=== PATIENT | male | born 1975 | race Caucasian/White ===

== ENCOUNTER → 2017-03-10 | Outpatient (CLI) | payer BC ==
--- NOTE | 2017-03-10 10:10 | MR ---
EXAMINATION TYPE: MR shoulder LT wo con DATE OF EXAM: 03/10/2017 9:53 AM COMPARISON: NONE HISTORY: Left shoulder pain TECHNIQUE: Multiplanar, multisequence imaging of the left shoulder is performed without contrast. FINDINGS: Rotator Cuff: There is intrasubstance signal within the distal margin the subscapularis tendon compat ible with tendinosis and intrasubstance tear. No through thickness tear or retraction. Within the rotator interval there is intermediate signal which can be associated with capsulitis. Acromioclavicular Joint: AC joint is maintained. No evidence of impingement. Type II acromion. Glenohumeral Joint: Joint spaces preserved with no sizable joint effusion however there is edema annmarie g the glenoid insertion of the inferior glenohumeral ligament which appears to be thickened suggestiv e of sprain. No through thickness tear. This can be associated with capsulitis. Labrum: The labrum appears grossly intact given limitation of non-arthrogram study. Biceps Tendon: The long head of biceps is in normal location within bicipital groove. Bone marrow signal: No focal abnormal marrow signal is appreciated. IMPRESSION: 1. Findings are suggestive of capsulitis, including adhesive capsulitis. Edema around the inferior gl enohumeral ligament suggestive of sprain with no through thickness tear. 2. Very mild supraspinatus tendinosis with suspected partial intrasubstance tear but no through thick ness tear or retraction.
== END | disposition home or self-care (01) ==
LOC: RADMRIMAIN 09:17
PROVIDERS: ATTEND Family Medicine
DX: M67.814 Other specified disorders of tendon, left shoulder (principal)

== ENCOUNTER 2017-05-29 08:18 | Observation (INO) | payer BC ==
[2017-05-29] MEDS ORDERED: SODIUM CHLORIDE 0.9% 1,000 ML IV STA ×2 (08:35→11:32)
[2017-05-29] MEDS ORDERED: HYDROmorphone 1 MG/ML 1 ML SYRINGE IVP STA ×2 (08:35→11:24)
--- NOTE | 2017-05-29 08:49 | ED ---
General Adult HPI <Bryan Garza - Last Filed: 05/29/17 11:32> - General Source: patient, RN notes reviewed Mode of arrival: ambulatory Limitations: no limitations <Clair Vivar - Last Filed: 05/29/17 11:47> - General Chief complaint: Skin/Abscess/Foreign Body Stated complaint: MALE - ABSCESS Time Seen by Provider: 05/29/17 08:31 - History of Present Illness Initial comments: 41-year-old male presents to the emergency department with a chief complaint of wound to the right side of the testicles. Patient states he's had this for about 5 days. Patient states it started as just like an ingrown hair and has gotten worse. Patient states he has had drainage and discharge from the area. Patient denies any fever or chills with this. Patient denies any cough cold runny nose. Patient denies any history of MRSA or anything like this in the past. Patient states he was concerned due to the redness swelling and pain of the area so he thought that he should be evaluated.Patient denies any recent fever, chills, shortness of breath, chest pain, back pain, abdominal pain, nausea vomiting, numbness or tingling, dysuria or hematuria, constipation or diarrhea, headaches or visual changes, or any other current symptoms. (Clair Vivar) - Related Data Home Medications Medication Instructions Recorded Confirmed ALPRAZolam [Xanax] 0.25 mg PO BID PRN 06/26/15 05/29/17 Citalopram Hydrobromide [CeleXA] 30 mg PO DAILY 06/26/15 05/29/17 Hydrocodone/Acetaminophen [Lortab 1 tab PO Q4HR PRN 06/26/15 05/29/17 5-325 mg Tablet] Acetaminophen Tab [Tylenol Tab] 650 mg PO Q4H PRN 05/29/17 05/29/17 Allergies Allergy/AdvReac Type Severity Reaction Status Date / Time Sulfa (Sulfonamide Allergy Rash/Hives Verified 05/29/17 08:59 Antibiotics) Review of Systems ROS Other: All systems not noted in ROS Statement are negative. <Bryan Garza - Last Filed: 05/29/17 11:32> ROS Other: All systems not noted in ROS Statement are negative. <Clair Vivar - Last Filed: 05/29/17 11:47> ROS Statement: Those systems with pertinent positive or pertinent negative responses have been documented in the HPI. Past Medical History Past Medical History: No Reported History Additional Past Medical History / Comment(s): 06/26/15 Pt presented to [facility] ER with L hand infected x 2 days. He states he was cutting wood and reached down to pick out hand his axe and accidentally cut between 2nd and 3rd fingers of L hand with axe blade. He is admitted with cellulitis L hand and associated with streaking and fever. Other HX: L knee pain which pt thinks is due to tendonitis. History of Any Multi-Drug Resistant Organisms: None Reported Past Surgical History: Appendectomy Past Anesthesia/Blood Transfusion Reactions: No Reported Reaction Past Psychological History: Anxiety, Depression Smoking Status: Current every day smoker Past Alcohol Use History: None Reported Past Drug Use History: None Reported - Past Family History Father Family Medical History: Hypertension, Myocardial Infarction ([place]) Mother Family Medical History: Hypertension <Clair Vivar - Last Filed: 05/29/17 11:47> General Exam Limitations: no limitations General appearance: alert, in no apparent distress ENT exam: Present: normal exam, mucous membranes moist Respiratory exam: Present: normal lung sounds bilaterally. Absent: respiratory distress, wheezes, rales, rhonchi, stridor Cardiovascular Exam: Present: regular rate, normal rhythm, normal heart sounds. Absent: systolic murmur, diastolic murmur, rubs, gallop, clicks GI/Abdominal exam: Present: soft, normal bowel sounds. Absent: distended, tenderness, guarding, rebound, rigid exam: Present: testicular tenderness (To the right), scrotal swelling (Right sided with induration with a open draining abscess noted). Absent: urethral discharge Neurological exam: Present: alert, oriented X3 Psychiatric exam: Present: normal affect, normal mood Skin exam: Present: warm, dry, intact, normal color. Absent: rash <Clair Vivar - Last Filed: 05/29/17 11:47> Course <Bryan Garza - Last Filed: 05/29/17 11:32> <Clair Vivar - Last Filed: 05/29/17 11:47> Vital Signs 05/29/17 05/29/17 05/29/17 08:26 09:35 10:38 Temperature 98.2 F 97.5 F L Pulse Rate 97 84 83 Respiratory 18 16 18 Rate Blood Pressure 131/80 124/83 129/88 O2 Sat by Pulse 99 96 Oximetry 05/29/17 11:24 Temperature 97.4 F L Pulse Rate 84 Respiratory 16 Rate Blood Pressure 128/87 O2 Sat by Pulse 97 Oximetry - Reevaluation(s) Reevaluation #1: 05/29/17 11:32 Patient does meet sepsis criteria diagnosed 11:30 AM. Lactic acid was ordered. Blood cultures was ordered. Fluids were provided. Patient provided IV antibiotics. (Bryan Garza) Medical Decision Making - Lab Data Result diagrams: 05/29/17 08:51 05/29/17 08:51 <Bryan Garza - Last Filed: 05/29/17 11:32> - Lab Data Result diagrams: 05/29/17 08:51 05/29/17 08:51 - Radiology Data Radiology results: report reviewed, image reviewed <Clair Vivar - Last Filed: 05/29/17 11:47> - Medical Decision Making Patient reevaluated by myself, Dr. Garza. Patient has right scrotal cellulitis with extension to the inguinal and perineal and right upper thigh region. There is open wound with mild purulent appearing drainage. Ultrasound without formed abscess. Case discussed with Dr. Rosas, who will admit for IV antibiotics. Rayray. (Bryan Garza) 41-year-old male presents for appears to be a scrotal abscess. This time lab work and ultrasound are reviewed. At this time Dr. Garza discussed the case with on-call urology who agreed overnight admission. We will admit the patient at this time antibiotics have been started. (Clair Vivar) - Lab Data Lab Results 05/29/17 05/29/17 05/29/17 Range/Units 08:51 08:51 08:51 WBC 11.6 H (3.8-10.6) k/uL RBC 4.71 (4.30-5.90) m/uL Hgb 15.3 (13.0-17.5) gm/dL Hct 42.3 (39.0-53.0) % MCV 89.9 (80.0-100.0) fL MCH 32.5 (25.0-35.0) pg MCHC 36.2 (31.0-37.0) g/dL RDW 12.7 (11.5-15.5) % Plt Count 222 (150-450) k/uL Neutrophils % 64 % Lymphocytes % 22 % Monocytes % 8 % Eosinophils % 4 % Basophils % 1 % Neutrophils # 7.4 (1.3-7.7) k/uL Lymphocytes # 2.5 (1.0-4.8) k/uL Monocytes # 0.9 (0-1.0) k/uL Eosinophils # 0.5 (0-0.7) k/uL Basophils # 0.1 (0-0.2) k/uL Sodium 140 (137-145) mmol/L Potassium 3.7 (3.5-5.1) mmol/L Chloride 102 (98-107) mmol/L Carbon Dioxide 26 (22-30) mmol/L Anion Gap 12 mmol/L BUN 11 (9-20) mg/dL Creatinine 0.78 (0.66-1.25) mg/dL Est GFR (MDRD) Af Amer >60 (>60 ml/min/1.73 sqM) Est GFR (MDRD) Non-Af >60 (>60 ml/min/1.73 sqM) Glucose 112 H (74-99) mg/dL Plasma Lactic Acid Tucker 1.3 (0.7-2.0) mmol/L Calcium 9.3 (8.4-10.2) mg/dL Total Bilirubin 0.7 (0.2-1.3) mg/dL AST 22 (17-59) U/L ALT 36 (21-72) U/L Alkaline Phosphatase 89 (38-126) U/L Total Protein 6.8 (6.3-8.2) g/dL Albumin 4.1 (3.5-5.0) g/dL Urine Color Urine Appearance (Clear) Urine pH (5.0-8.0) Ur Specific [place] (1.001-1.035) Urine Protein (Negative) Urine Glucose (UA) (Negative) Urine Ketones (Negative) Urine Blood (Negative) Urine Nitrite (Negative) Urine Bilirubin (Negative) Urine Urobilinogen (<2.0) mg/dL Ur Leukocyte Esterase (Negative) 05/29/17 Range/Units 09:30 WBC (3.8-10.6) k/uL RBC (4.30-5.90) m/uL Hgb (13.0-17.5) gm/dL Hct (39.0-53.0) % MCV (80.0-100.0) fL MCH (25.0-35.0) pg MCHC (31.0-37.0) g/dL RDW (11.5-15.5) % Plt Count (150-450) k/uL Neutrophils % % Lymphocytes % % Monocytes % % Eosinophils % % Basophils % % Neutrophils # (1.3-7.7) k/uL Lymphocytes # (1.0-4.8) k/uL Monocytes # (0-1.0) k/uL Eosinophils # (0-0.7) k/uL Basophils # (0-0.2) k/uL Sodium (137-145) mmol/L Potassium (3.5-5.1) mmol/L Chloride (98-107) mmol/L Carbon Dioxide (22-30) mmol/L Anion Gap mmol/L BUN (9-20) mg/dL Creatinine (0.66-1.25) mg/dL Est GFR (MDRD) Af Amer (>60 ml/min/1.73 sqM) Est GFR (MDRD) Non-Af (>60 ml/min/1.73 sqM) Glucose (74-99) mg/dL Plasma Lactic Acid Tucker (0.7-2.0) mmol/L Calcium (8.4-10.2) mg/dL Total Bilirubin (0.2-1.3) mg/dL AST (17-59) U/L ALT (21-72) U/L Alkaline Phosphatase (38-126) U/L Total Protein (6.3-8.2) g/dL Albumin (3.5-5.0) g/dL Urine Color Yellow Urine Appearance Clear (Clear) Urine pH 8.0 (5.0-8.0) Ur Specific [place] 1.009 (1.001-1.035) Urine Protein Negative (Negative) Urine Glucose (UA) Negative (Negative) Urine Ketones Negative (Negative) Urine Blood Negative (Negative) Urine Nitrite Negative (Negative) Urine Bilirubin Negative (Negative) Urine Urobilinogen <2.0 (<2.0) mg/dL Ur Leukocyte Esterase Negative (Negative) Disposition <Garza,Bryan - Last Filed: 05/29/17 11:32> Time of Disposition: 11:47 Decision Date: 05/29/17 Decision Time: 11:47 <Clair Vivar - Last Filed: 05/29/17 11:47> Clinical Impression: Cellulitis of scrotum Disposition: [facility]MITT[facility] Condition: Stable Referrals: Satya Sethi DO [Primary Care Provider] - 1-2 days
[2017-05-29 09:09] LABS: Basophils # (A) 0.1 k/uL (0-0.2); Basophils % (A) 1 %; CH 32.2; Eosinophils # (A) 0.5 k/uL (0-0.7); Eosinophils % (A) 4 %; HCT 42.3 % (39.0-53.0); HDW 2.49; HGB 15.3 gm/dL (13.0-17.5); Luc % (Auto) 2; Lymphocytes # (A) 2.5 k/uL (1.0-4.8); Lymphocytes % (A) 22 %; MCH 32.5 pg (25.0-35.0); MCHC 36.2 g/dL (31.0-37.0); MCV 89.9 fL (80.0-100.0); Mean Platelet Volume 7.7; Monocytes # (A) 0.9 k/uL (0-1.0); Monocytes % (A) 8 %; Neutrophils # (A) 7.4 k/uL (1.3-7.7); Neutrophils % (A) 64 %; RBC 4.71 m/uL (4.30-5.90); RDW 12.7 % (11.5-15.5); WBC 11.6 k/uL (3.8-10.6); WBC (Perox) 10.63
[2017-05-29 09:20] LABS: ALT 36 U/L (21-72); AST 22 U/L (17-59); Alkaline Phosphatase 89 U/L (38-126); Anion Gap 12 mmol/L; Blood Urea Nitrogen 11 mg/dL (9-20); Calcium 9.3 mg/dL (8.4-10.2); Carbon Dioxide 26 mmol/L (22-30); Chloride 102 mmol/L (98-107); Glucose 112 mg/dL (74-99); Non-African American GFR(MDRD) >60 (>60 ml/min/1.73 sqM); Potassium 3.7 mmol/L (3.5-5.1); Sodium 140 mmol/L (137-145); Total Bilirubin 0.7 mg/dL (0.2-1.3); Total Protein 6.8 g/dL (6.3-8.2)
[2017-05-29 09:43] LABS: Appearance,Urine Clear (Clear); Bilirubin,Urine Negative (Negative); Glucose,Urine (UA) Negative (Negative); Ketones,Urine Negative (Negative); Leukocyte Esterase,Urine Negative (Negative); Nitrite,Urine Negative (Negative); Protein,Urine Negative (Negative); Specific Gravity,Urine 1.009 (1.001-1.035); UA Billing (MACRO vs. MICRO) CHEM; Urobilinogen,Urine <2.0 mg/dL (<2.0)
--- NOTE | 2017-05-29 10:40 | US ---
EXAMINATION TYPE: US scrotum with doppler. Grayscale and color Doppler Duplex imaging performed of t he scrotum. DATE OF EXAM: 05/29/2017 COMPARISON: NONE CLINICAL HISTORY: Pain. Right side abscess lateral to right testicle x 05/22/2017. Painful. Swelling . EXAM MEASUREMENTS: TESTICLES: Right Testicle: 3.3 x 3.2 x 2.1 cm Left Testicle: 3.6 x 2.3 x 2.8 cm EPIDIDYMIS HEAD: Right Epididymis: 1.1 x 0.8 x 0.9 cm Left Epididymis: 1.2 x 1.2 x 0.6 cm Doppler performed to assess for testicular vascularity; good bilateral color flow and waveforms are s een. There is no evidence of testicular torsion. Presence of hydroceles: bilateral, small right Presence of varicoceles: right side, valsalva performed Right epididymal cyst = 0.4 x 0.4 x 0.3 cm. Area of abscess scanned. Break in skin seen = 0.3 cm and appears heterogenous. IMPRESSION: 1. Discrete abscess is not identified. There is skin thickening present. 2. Right epididymal cyst.
[2017-05-29] MEDS ORDERED: AMPICILLIN-SULBACTAM 3 GM in SODIUM CHLORIDE 0.9% 100 ML IVPB STA (11:33)
[2017-05-29] MEDS ORDERED: ONDANSETRON 4 MG/2 ML VIAL IVP PRN (11:44)
[2017-05-29] MEDS ORDERED: NALOXONE 0.4 MG/ML 1 ML VIAL IV PRN (11:44)
[2017-05-29] MEDS ORDERED: ACETAMINOPHEN TAB 325 MG TAB PO PRN (11:44)
[2017-05-29] MEDS ORDERED: KETOROLAC 30 MG/ML 1 ML VIAL IVP PRN (11:44)
[2017-05-29] MEDS ORDERED: IBUPROFEN 400 MG TAB PO PRN (11:44)
[2017-05-29] MEDS ORDERED: ALPRAZolam 0.25 MG TAB PO PRN (11:46)
[2017-05-29] MEDS: SODIUM CHLORIDE 0.9% 1,000 ML IV SCH ×2 (12:16→23:52)
[2017-05-29 14:57] VITALS: BMI 22.3
[2017-05-29] MEDS: HYDROcodone/APAP 5-325MG 1 EACH TAB PO PRN ×2 (14:59→21:48)
[2017-05-29] MEDS: HYDROmorphone 1 MG/ML 1 ML SYRINGE IV PRN ×2 (18:02→23:51)
[2017-05-29] MEDS: AMPICILLIN-SULBACTAM 3 GM in SODIUM CHLORIDE 0.9% 100 ML IVPB SCH ×2 (18:09→23:52)
--- NOTE | 2017-05-29 19:37 | P.GSHP ---
History of Present Illness H&P Date: 05/29/17 Chief Complaint: Scrotal drainage and swelling The patient said that he first noted a pea size hump on the right lateral scrotum approximately 1 week ago. He said that he squeezed it and some greenish brown material drained from it. He said he thought was doing well until 3 or 4 days ago when he noted redness surrounding the area of drainage and increased drainage. He has had no fever or chills. He presented to the emergency room where he was examined and felt to have cellulitis. He has been started on Unasyn IV and admitted for observation due to the infection. - Constitutional Constitutional: Denies chills, Denies fever - Cardiovascular Cardiovascular: Denies chest pain, Denies shortness of breath - Respiratory Respiratory: Denies cough (Denies cough) - Gastrointestinal Gastrointestinal: Denies abdominal pain, Denies diarrhea, Denies nausea, Denies vomiting - Musculoskeletal Musculoskeletal: Denies myalgias Past Medical History Past Medical History: No Reported History Additional Past Medical History / Comment(s): 2014 L hand injury with infection/ sepsis/cellulitis, "frozen" L shoulder, L knee pain which pt thinks is due to tendonitis. History of Any Multi-Drug Resistant Organisms: None Reported Past Surgical History: Appendectomy Past Anesthesia/Blood Transfusion Reactions: No Reported Reaction Past Psychological History: Anxiety, Depression Additional Psychological History / Comment(s): Pt states he has anxiety and depression which he feels is well managed with his medications. He lives with his and 2 children ages 4 and 18yrs. He is indpendent. He drives a car. Smoking Status: Current every day smoker Past Alcohol Use History: None Reported Past Drug Use History: None Reported - Past Family History Father Family Medical History: Hypertension, Myocardial Infarction ([place]) Additional Family Medical History / Comment(s): Father is 69yrs old. He had a [place] at the age of 58yrs. Mother Family Medical History: Hypertension Additional Family Medical History / Comment(s): Mother is 68yrs old. Medications and Allergies Home Medications Medication Instructions Recorded Confirmed Type ALPRAZolam [Xanax] 0.25 mg PO BID PRN 06/26/15 05/29/17 History Citalopram Hydrobromide [CeleXA] 30 mg PO DAILY 06/26/15 05/29/17 History Hydrocodone/Acetaminophen [Lortab 1 tab PO Q4HR PRN 06/26/15 05/29/17 History 5-325 mg Tablet] Acetaminophen Tab [Tylenol Tab] 650 mg PO Q4H PRN 05/29/17 05/29/17 History Allergies Allergy/AdvReac Type Severity Reaction Status Date / Time Sulfa (Sulfonamide Allergy Rash/Hives Verified 05/29/17 08:59 Antibiotics) Surgical - Exam Vital Signs Temp Pulse Resp BP Pulse Ox 98.2 F 97 18 131/80 99 05/29/17 08:26 05/29/17 08:26 05/29/17 08:26 05/29/17 08:26 05/29/17 08:26 - General well developed, well nourished, no distress - Respiratory normal respiratory effort, clear to auscultation - Abdomen Abdomen: soft, non tender, no guarding, no rigid, no rebound - Genitourinary testicles non-tender, other (There is an area of drainage on the left lateral scrotum with an opening measuring approximately 5 mm in size. There is some surrounding erythema but no fluctuance. It is possible to express some purulent material from what appears to be an abscess cavity.) Results - Labs 05/29/17 08:51 05/29/17 08:51 Abnormal Lab Results - Last 24 Hours (Table) 05/29/17 05/29/17 Range/Units 08:51 08:51 WBC 11.6 H (3.8-10.6) k/uL Glucose 112 H (74-99) mg/dL Microbiology - Last 24 Hours (Table) 05/29/17 08:34 Wound Culture - Preliminary Groin Diabetes panel 05/29/17 Range/Units 08:51 Sodium 140 (137-145) mmol/L Potassium 3.7 (3.5-5.1) mmol/L Chloride 102 (98-107) mmol/L Carbon Dioxide 26 (22-30) mmol/L BUN 11 (9-20) mg/dL Creatinine 0.78 (0.66-1.25) mg/dL Glucose 112 H (74-99) mg/dL Calcium 9.3 (8.4-10.2) mg/dL AST 22 (17-59) U/L ALT 36 (21-72) U/L Alkaline Phosphatase 89 (38-126) U/L Total Protein 6.8 (6.3-8.2) g/dL Albumin 4.1 (3.5-5.0) g/dL Calcium panel 05/29/17 Range/Units 08:51 Calcium 9.3 (8.4-10.2) mg/dL Albumin 4.1 (3.5-5.0) g/dL Pituitary panel 05/29/17 Range/Units 08:51 Sodium 140 (137-145) mmol/L Potassium 3.7 (3.5-5.1) mmol/L Chloride 102 (98-107) mmol/L Carbon Dioxide 26 (22-30) mmol/L BUN 11 (9-20) mg/dL Creatinine 0.78 (0.66-1.25) mg/dL Glucose 112 H (74-99) mg/dL Calcium 9.3 (8.4-10.2) mg/dL Adrenal panel 05/29/17 Range/Units 08:51 Sodium 140 (137-145) mmol/L Potassium 3.7 (3.5-5.1) mmol/L Chloride 102 (98-107) mmol/L Carbon Dioxide 26 (22-30) mmol/L BUN 11 (9-20) mg/dL Creatinine 0.78 (0.66-1.25) mg/dL Glucose 112 H (74-99) mg/dL Calcium 9.3 (8.4-10.2) mg/dL Total Bilirubin 0.7 (0.2-1.3) mg/dL AST 22 (17-59) U/L ALT 36 (21-72) U/L Alkaline Phosphatase 89 (38-126) U/L Total Protein 6.8 (6.3-8.2) g/dL Albumin 4.1 (3.5-5.0) g/dL Assessment and Plan (1) Cellulitis of scrotum Status: Acute Plan: The patient has been started on Unasyn. Least at the present time and does not appear that his abscess will require drainage. If the areas of erythema surrounding the abscess cavity have decreased he will be discharged on oral antibiotics in the morning Time with Patient: Greater than 30
[2017-05-29 23:30] VITALS: RESP 16
[2017-05-30] MEDS: HYDROmorphone 1 MG/ML 1 ML SYRINGE IV PRN (05:24)
[2017-05-30] MEDS: AMPICILLIN-SULBACTAM 3 GM in SODIUM CHLORIDE 0.9% 100 ML IVPB SCH (05:31)
--- NOTE | 2017-05-30 07:39 | P.DS ---
Providers Date of admission: 05/29/17 11:31 Attending physician: Kyaw Rosas Primary care physician: Satya Sethi - Discharge Diagnosis(es) (1) Cellulitis of scrotum Current Visit: Yes Status: Acute Hospital Course: The patient was admitted through the emergency room for treatment of cellulitis involving the right side of the scrotum. At time of admission he had purulent drainage from the center of what appeared to be a scrotal abscess. He was started on Unasyn and remained afebrile. The erythema surrounding the abscess appeared to be receding and the patient was discharged the following morning. The patient will be continued on Augmentin for 1 week. He'll be seen back by Dr. Rosas in 5-7 days. He has no activity or dietary limitations. Patient Condition at Discharge: Stable Plan - Discharge Summary New Discharge Prescriptions: New Amoxic-Pot Clav 500-125 mg [Augmentin 500-125 mg] 1 tab PO Q12HR #14 tab No Action Hydrocodone/Acetaminophen [Lortab 5-325 mg Tablet] 1 tab PO Q4HR PRN PRN Reason: Pain ALPRAZolam [Xanax] 0.25 mg PO BID PRN PRN Reason: Anxiety Citalopram Hydrobromide [CeleXA] 30 mg PO DAILY Acetaminophen Tab [Tylenol Tab] 650 mg PO Q4H PRN PRN Reason: Pain Discharge Medication List ALPRAZolam [Xanax] 0.25 mg PO BID PRN 06/26/15 [History] Citalopram Hydrobromide [CeleXA] 30 mg PO DAILY 06/26/15 [History] Hydrocodone/Acetaminophen [Lortab 5-325 mg Tablet] 1 tab PO Q4HR PRN 06/26/15 [ History] Acetaminophen Tab [Tylenol Tab] 650 mg PO Q4H PRN 05/29/17 [History] Amoxic-Pot Clav 500-125 mg [Augmentin 500-125 mg] 1 tab PO Q12HR #14 tab [Rx] Follow up Appointment(s)/Referral(s): Kyaw Rosas MD [STAFF PHYSICIAN] - 1 Week Satya Sethi DO [Primary Care Provider] - As Needed Discharge Disposition: HOME SELF-CARE
[2017-05-30 07:41] VITALS: BP 118/77; PULSE 69; TEMP 97
[2017-05-30] MEDS: SODIUM CHLORIDE 0.9% 1,000 ML IV SCH (07:43)
[2017-05-30] MEDS: HYDROcodone/APAP 5-325MG 1 EACH TAB PO PRN (07:45)
[2017-05-30] MEDS ORDERED: CITALOPRAM HYDROBROMIDE 10 MG TAB PO SCH (09:00)
== END 2017-05-30 08:21 | disposition home or self-care (01) ==
LOC: EC 08:18 → 4MS4W 11:31
PROVIDERS: ADMIT Urology; ATTEND Urology
DX: N49.2 Inflammatory disorders of scrotum (principal); Z79.899 Other long term (current) drug therapy; F41.9 Anxiety disorder, unspecified; F32.9 Major depressive disorder, single episode, unspecified; F17.200 Nicotine dependence, unspecified, uncomplicated; Z82.49 Family history of ischemic heart disease and other diseases of the circulatory system; Z88.2 Allergy status to sulfonamides
CPT/HCPCS: 96376 ×4; 96361 ×3; 96375 ×2; 99284 ×2; 96365; 96366 ×2; 36415; 80053; 83605; 85025; 81003; 87040; 87070; 87205; 87077; 87186; 93975; 76870; G0378 ×2; J1170 ×2; J0295 ×2

== ENCOUNTER 2018-02-23 09:51 | Emergency (ER) | payer BC ==
[2018-02-23 10:11] VITALS: TEMP 99.3
[2018-02-23] MEDS ORDERED: SODIUM CHLORIDE 0.9% 1,000 ML IV STA ×2 (11:00)
--- NOTE | 2018-02-23 11:06 | ED ---
General Adult HPI - General Chief complaint: Abdominal Pain Stated complaint: ABDOMINL PAIN Time Seen by Provider: 02/23/18 10:45 Source: patient, RN notes reviewed, old records reviewed Mode of arrival: ambulatory Limitations: no limitations - History of Present Illness Initial comments: Chief complaint and history of present illness a 42-year-old male here for complaint of abdominal cramping and pain with yellow mucousy foamy stool. This been ongoing for a prolonged period of time the cramping is 9 out of 10 and then when the cramping stops he feels better. Past history significant for having had an addiction to pain pills. In October he started on Suboxone. He states that's about when loose stool started. Also 10 years ago has told he may have colitis. Also possible history of IBS. Recently on steroid pack with minimal improvement. Last time he was on antibiotics was 5 months ago. 13 pound weight loss in the past for 5 months. - Related Data Home Medications Medication Instructions Recorded Confirmed Citalopram Hydrobromide [CeleXA] 30 mg PO DAILY 06/26/15 02/23/18 Acetaminophen Tab [Tylenol Tab] 650 mg PO Q4H PRN 02/23/18 02/23/18 Buprenorphine HCl/Naloxone HCl 1.25 film SL DAILY 02/23/18 02/23/18 [Suboxone 2 mg-0.5 mg Sl Film] cloNIDine HCL [Catapres] 0.1 mg PO HS 02/23/18 02/23/18 Previous Rx's Medication Instructions Recorded Ondansetron Odt [Zofran Odt] 4 mg PO Q8HR PRN #12 tab 09/26/17 methylPREDNISolone Dose Pack 4 mg PO DIRECTED #21 package 02/23/18 [Medrol Dose Pack] Allergies Allergy/AdvReac Type Severity Reaction Status Date / Time Sulfa (Sulfonamide Allergy Rash/Hives Verified 02/23/18 10:33 Antibiotics) Review of Systems ROS Statement: Those systems with pertinent positive or pertinent negative responses have been documented in the HPI. Review of systems no headache or visual acuity changes no chest pain or shortness of breath. Abdomen currently 1 out of 10. Initially 9 out of 10 pain. Patient reports that he had difficulty with employment because of the frequency of needing to have bowel movements. States that is affecting his life and job. No neuro deficits. All systems are reviewed. The patient's past medical problems significant for as noted above pain pill addiction which diminished over, this past October currently on Suboxone. Also for the past 3 weeks he's been on Pentasa which he states is making him feel worse. The patient's surgeries include appendectomy. Family history grandmother breast cancer grandfather had prostate cancer. Patient has ALLERGIES to sulfa medications. He is a smoker strongly encouraged to stop denies alcohol use. ROS Other: All systems not noted in ROS Statement are negative. Past Medical History Past Medical History: No Reported History Additional Past Medical History / Comment(s): 2014 L hand injury with infection/ sepsis/cellulitis, "frozen" L shoulder, L knee pain which pt thinks is due to tendonitis. hs of colitis ibs History of Any Multi-Drug Resistant Organisms: MRSA Date of last positivie culture/infection: 05/29/17 MDRO Source:: GROIN Past Surgical History: Appendectomy Past Anesthesia/Blood Transfusion Reactions: No Reported Reaction Past Psychological History: Anxiety, Depression Smoking Status: Current every day smoker Past Alcohol Use History: None Reported Past Drug Use History: None Reported, Prescription Drug Abuse - Past Family History Father Family Medical History: Hypertension, Myocardial Infarction ([place]) Additional Family Medical History / Comment(s): Father is 69yrs old. He had a PA at the age of 58yrs. Mother Family Medical History: Hypertension Additional Family Medical History / Comment(s): Mother is 68yrs old. General Exam - General Exam Comments Initial Comments: General: The patient is awake and alert, initially had cramping pain 9 on a 10. It soon came down to 1 out of 10. Still with abdominal discomfort. Very frequent bowel movements, yellow mucousy foamy in nature. Vital signs temp 99.3 pulse 100 respiratory rate 18 pulse ox 90% room air blood pressure 133/97 and does not appear acutely ill. Eye: Pupils are equal, round and reactive to light, extra-ocular movements are intact ; there is normal conjunctiva bilaterally. No signs of icterus. Ears, nose, mouth and throat: There are moist mucous membranes and no oral lesions. Neck: The neck is supple, there is no tenderness Cardiovascular: There is a regular rate and rhythm. No murmur, rub or gallop is appreciated. Respiratory: Lungs are clear to auscultation, respirations are non-labored, breath sounds are equal. No wheezes, stridor, rales, or rhonchi. Gastrointestinal: Soft, non-distended, non-tender abdomen without masses or organomegaly noted. There is no rebound or guarding present. Currently abdominal cramping discomfort only 1 out of 10 pain scale. Previously was 9 out of 10. And frequent. Back: There is no tenderness to palpation in the midline. Musculoskeletal: Normal ROM, no tenderness, Neurological: No complaint of any evidence of any neuro deficits. Skin: Skin is warm and dry and no rashes or lesions are noted. Psychiatric: Cooperative, Limitations: no limitations Course Vital Signs 02/23/18 02/23/18 02/23/18 10:07 11:13 11:51 Temperature 99.3 F Pulse Rate 100 80 75 Respiratory 18 18 16 Rate Blood Pressure 133/97 137/99 133/94 O2 Sat by Pulse 98 100 100 Oximetry 02/23/18 02/23/18 02/23/18 12:50 14:18 15:55 Temperature Pulse Rate 75 73 74 Respiratory 18 16 16 Rate Blood Pressure 127/86 136/94 128/82 O2 Sat by Pulse 100 96 97 Oximetry Medical Decision Making - Medical Decision Making Medical decision making; this is a 42-year-old male here with complaint of abdominal cramping that went as worsened 9 and 10. Past history of possible colitis. The patient's labs show white count 7.1 hemoglobin 16 hematocrit 48. Potassium 3.9. BUN 7 creatinine 0.7 with a GFR greater than 90. Glucose is 107. Plasma lactic acid normal at 0.9. Amylase lipase normal limits. Stool guaiac-positive. C. diff negative X-rays of the abdomen were done and reviewed by radiologist his findings include there are air fluid levels present no evidence of pneumoperitoneum. Lung bases are clear. Calcifications present in the left hemipelvis is indeterminate measuring approximately 3-4 x 1 mm. Impression intermediate pelvic calcification. Correlate for enteritis, ileus. As read by Dr. Swartz. CT of the abdomen was done with IV and oral contrast. Significant findings include there is a sub-subsegmental lower lobe consolidation and greater on the left correlate for infiltrate. A millimeter nodule seen within the left lower lobe. No hydronephrosis, nephrolithiasis or renal mass. Bowel; there is thickening of the wall of the colon. Correlate for mild colitis. Predominant seen involving the left colon. Impression; there is mild left colonic wall and rectal wall thickening correlate for colitis. Extending to the level of the splenic flexure and distal transverse colon. Multiple less than 5 mm hypodensities within the liver too small to characterize. As read by Dr. Lu Lungs are clear to auscultation no evidence of any crepitus or rales. No fever. No pleuritic pain. Findings above did include possible infiltrate. The patient will be placed on azithromycin and advised to follow-up with family physician. Case discussed with Dr. Briseida Montes. Adithya neurologist. She recommends that the patient is not tolerating intoxicated he can stop the Pentasa. I will suggest the patient try other ways to decrease his frequency of bowel movements. We discussed his labs and his CAT scan findings. Off work for today and advised to follow-up with his family doctor and make an appointment to follow-up with a [employer] [facility] consultant as soon as possible. - Lab Data Result diagrams: 02/23/18 10:30 02/23/18 10:30 Lab Results 02/23/18 02/23/18 02/23/18 Range/Units 10:30 10:30 10:30 WBC 7.1 (3.8-10.6) k/uL RBC 5.61 (4.30-5.90) m/uL Hgb 16.5 (13.0-17.5) gm/dL Hct 48.3 (39.0-53.0) % MCV 86.1 (80.0-100.0) fL MCH 29.4 (25.0-35.0) pg MCHC 34.2 (31.0-37.0) g/dL RDW 13.1 (11.5-15.5) % Plt Count 244 (150-450) k/uL Neutrophils % 65 % Lymphocytes % 22 % Monocytes % 9 % Eosinophils % 1 % Basophils % 1 % Neutrophils # 4.6 (1.3-7.7) k/uL Lymphocytes # 1.6 (1.0-4.8) k/uL Monocytes # 0.6 (0-1.0) k/uL Eosinophils # 0.1 (0-0.7) k/uL Basophils # 0.1 (0-0.2) k/uL Sodium 143 (137-145) mmol/L Potassium 3.9 (3.5-5.1) mmol/L Chloride 100 (98-107) mmol/L Carbon Dioxide 29 (22-30) mmol/L Anion Gap 14 mmol/L BUN 7 L (9-20) mg/dL Creatinine 0.70 (0.66-1.25) mg/dL Est GFR (CKD-EPI)AfAm >90 (>60 ml/min/1.73 sqM) Est GFR (CKD-EPI)NonAf >90 (>60 ml/min/1.73 sqM) Glucose 107 H (74-99) mg/dL Plasma Lactic Acid Tucker 0.9 (0.7-2.0) mmol/L Calcium 9.6 (8.4-10.2) mg/dL Total Bilirubin 0.4 (0.2-1.3) mg/dL AST 28 (17-59) U/L ALT 38 (21-72) U/L Alkaline Phosphatase 97 (38-126) U/L Total Protein 7.0 (6.3-8.2) g/dL Albumin 4.1 (3.5-5.0) g/dL Amylase 65 (30-110) U/L Lipase 101 (23-300) U/L Stool Occult Blood (Negative) C. difficile (EIA) Intrp (Negative) 02/23/18 02/23/18 Range/Units 12:03 12:03 WBC (3.8-10.6) k/uL RBC (4.30-5.90) m/uL Hgb (13.0-17.5) gm/dL Hct (39.0-53.0) % MCV (80.0-100.0) fL MCH (25.0-35.0) pg MCHC (31.0-37.0) g/dL RDW (11.5-15.5) % Plt Count (150-450) k/uL Neutrophils % % Lymphocytes % % Monocytes % % Eosinophils % % Basophils % % Neutrophils # (1.3-7.7) k/uL Lymphocytes # (1.0-4.8) k/uL Monocytes # (0-1.0) k/uL Eosinophils # (0-0.7) k/uL Basophils # (0-0.2) k/uL Sodium (137-145) mmol/L Potassium (3.5-5.1) mmol/L Chloride (98-107) mmol/L Carbon Dioxide (22-30) mmol/L Anion Gap mmol/L BUN (9-20) mg/dL Creatinine (0.66-1.25) mg/dL Est GFR (CKD-EPI)AfAm (>60 ml/min/1.73 sqM) Est GFR (CKD-EPI)NonAf (>60 ml/min/1.73 sqM) Glucose (74-99) mg/dL Plasma Lactic Acid Tucker (0.7-2.0) mmol/L Calcium (8.4-10.2) mg/dL Total Bilirubin (0.2-1.3) mg/dL AST (17-59) U/L ALT (21-72) U/L Alkaline Phosphatase (38-126) U/L Total Protein (6.3-8.2) g/dL Albumin (3.5-5.0) g/dL Amylase (30-110) U/L Lipase (23-300) U/L Stool Occult Blood Positive (Negative) C. difficile (EIA) Intrp Negative (Negative) Disposition Clinical Impression: Colitis Disposition: HOME SELF-CARE Condition: Fair Instructions: Irritable Bowel Syndrome (ED), Colitis (ED) Additional Instructions: Increase fluids, research bulky diets help decrease loose stool. Take Medrol Dosepak as directed. Follow-up with family physician and Dr. Joaquin or Dr. Butts , call for appointment Prescriptions: methylPREDNISolone Dose Pack [Medrol Dose Pack] 4 mg PO DIRECTED #21 package Referrals: Satya Sethi DO [Primary Care Provider] - 1-2 days Bianca Butts MD [STAFF PHYSICIAN] - 1-2 days Time of Disposition: 16:09
[2018-02-23 11:24] LABS: Basophils # (A) 0.1 k/uL (0-0.2); Basophils % (A) 1 %; Eosinophils # (A) 0.1 k/uL (0-0.7); Eosinophils % (A) 1 %; HCT 48.3 % (39.0-53.0); HGB 16.5 gm/dL (13.0-17.5); Lymphocytes # (A) 1.6 k/uL (1.0-4.8); Lymphocytes % (A) 22 %; MCH 29.4 pg (25.0-35.0); MCHC 34.2 g/dL (31.0-37.0); MCV 86.1 fL (80.0-100.0); Mean Platelet Volume 7.6; Monocytes # (A) 0.6 k/uL (0-1.0); Monocytes % (A) 9 %; Neutrophils # (A) 4.6 k/uL (1.3-7.7); Neutrophils % (A) 65 %; Platelet Count 244 k/uL (150-450); RBC 5.61 m/uL (4.30-5.90); RDW 13.1 % (11.5-15.5); WBC 7.1 k/uL (3.8-10.6)
[2018-02-23 11:28] LABS: ALT 38 U/L (21-72); AST 28 U/L (17-59); Albumin 4.1 g/dL (3.5-5.0); Alkaline Phosphatase 97 U/L (38-126); Amylase 65 U/L (30-110); Anion Gap 14 mmol/L; Blood Urea Nitrogen 7 mg/dL (9-20); Calcium 9.6 mg/dL (8.4-10.2); Carbon Dioxide 29 mmol/L (22-30); Chloride 100 mmol/L (98-107); Glucose 107 mg/dL (74-99); Lipase 101 U/L (23-300); Potassium 3.9 mmol/L (3.5-5.1); Sodium 143 mmol/L (137-145); Total Bilirubin 0.4 mg/dL (0.2-1.3)
--- NOTE | 2018-02-23 11:36 | XR ---
2 view abdomen HISTORY: Pain, colitis 2 views of the abdomen on 3 images Correlation to prior exam 09/26/[address] abdomen pelvis There are air-fluid levels present. No evident pneumoperitoneum. Lung bases are clear. Calcification present in the left hemipelvis is indeterminate measuring approximately 3 to 4 by 1 mm. IMPRESSION: Indeterminate pelvic calcification. Correlate for enteritis, ileus.
[2018-02-23] MEDS ORDERED: SODIUM CHLORIDE 0.9% 1,000 ML IV SCH (13:00)
[2018-02-23] MEDS ORDERED: RX INFO: IV CONTRAST WAS GIVEN 1 EACH MISC MISCELLANE PRN (13:15)
[2018-02-23] MEDS ORDERED: IOPAMIDOL-300 CONTRAST 30 ML VIAL (ORAL USE) PO PRN (13:15)
[2018-02-23 14:18] VITALS: RESP 16
--- NOTE | 2018-02-23 15:14 | CT ---
EXAMINATION TYPE: CT abdomen pelvis w con DATE OF EXAM: 02/23/2018 COMPARISON: 09/26/2012 HISTORY: Abdominal pain and cramping, history of colitis. CT DLP: 983 mGycm Automated exposure control for dose reduction was used. CONTRAST: CT scan of the abdomen pelvis is performed with IV Contrast, patient injected with 100 mL of Isovue M 300. FINDINGS- LUNG BASES-there is subsegmental lower lobe consolidation greater on the left correlate for infiltrat e. 8 mm nodule seen within the left lower lobe. LIVER/GB-subcentimeter hypodensity within the liver. Stable from the previous exam. Additional nodule also seen measuring 5 mm both are small to characterize radiology. PANCREAS- No gross abnormality is seen. SPLEEN- No gross abnormality is seen. ADRENALS- No gross abnormality is seen. KIDNEYS/BLADDER- no hydronephrosis nephrolithiasis or renal mass. BOWEL-there is thickening of the wall the colon. Correlate for mild colitis. Predominant seen involvi ng the left colon.. LYMPH NODES- No greater than 1cm abdominal or pelvic lymph nodes areappreciated. OSSEOUS STRUCTURES- No significant abnormality is seen. OTHER- aorta of normal caliber. No free fluid. No free air. IMPRESSION- 1. There is mild left colonic wall and rectal wall thickening correlate for colitis. Extends to the l evel of the splenic flexure and distal transverse colon. 2. Multiple less than 5 mm hypodensities within the liver too small to characterize.
[2018-02-23 15:56] VITALS: BP 128/82; PULSE 74
== END 2018-02-23 16:27 | disposition home or self-care (01) ==
LOC: EC 09:51
DX: K52.9 Noninfective gastroenteritis and colitis, unspecified (principal); F17.200 Nicotine dependence, unspecified, uncomplicated; F32.9 Major depressive disorder, single episode, unspecified; Z86.14 Personal history of Methicillin resistant Staphylococcus aureus infection; Z90.49 Acquired absence of other specified parts of digestive tract; Z79.891 Long term (current) use of opiate analgesic; Z79.899 Other long term (current) drug therapy; Z88.2 Allergy status to sulfonamides
CPT/HCPCS: 99285; 96360; 96361 ×4; 36415; 80053; 82150; 83605; 83690; 85025; 82272; 87324; 87045; 87046; 74019; 74177; Q9967

== ENCOUNTER → 2018-03-31 | Day surgery (SDC) | payer BC ==
[2018-03-30 09:51] VITALS: BMI 20.7
[~2018-03-31] MED LIST: GLYCOPYRROLATE 0.2 MG/ML 2 ML VIAL ONE; LACTATED RINGERS 1,000 ML IV SCH; LIDOCAINE 1% 20 ML VIAL (10MG/ML) FOR IV START INTRADERMA PRN; LIDOCAINE 1% INJ 10MG/ML (20 ML MDV) ONE; PROPOFOL 10 MG/ML 20 ML VIAL IV ONE
[2018-03-31 09:15] VITALS: RESP 18; TEMP 98.6
--- NOTE | 2018-03-31 10:52 | P.PCN ---
Date of Procedure: 03/31/18 Procedure(s) Performed: Procedures: 1. Esophagogastroduodenoscopy and biopsy. 2. Colonoscopy and biopsy. Preoperative diagnosis: Abdominal pain, diarrhea, weight loss and abnormal CT of the abdomen. Postoperative diagnosis: 1. Small sliding hiatal hernia with no obvious esophagitis or complicated reflux disease. 2. Mild antral gastritis. 3. Normal colon and terminal ileum. 4. Multiple biopsies obtained from the duodenum, antrum, esophagus, terminal ileum and random colon. Preparation: HalfLytely prep. Sedation: Was provided by anesthesia. Brief clinical history: The patient is a 42-year-old male who I have evaluated in the office regarding the above symptoms. He lost 22 pounds since his visit to the emergency room around the end of January of this year. He continues to have diarrhea. CT of the abdomen in the emergency room showed evidence of colitis. This evaluation is to assess for celiac disease, inflammatory bowel disease or other pathology. Procedure: With the patient on his left lateral decubitus position and after informed consent and adequate sedation, I passed the Olympus-GIF 160 video upper endoscope the cricopharyngeus down the esophagus. GE junction was around 41 cm from the incisors and there was a small sliding hiatal hernia around 1 cm in size. The esophagus did not show any obvious erosions, ulcers, strictures or Hinton's esophagus. The endoscope was then passed into the stomach which was insufflated with air and inspected in detail including the retroflex view in the cardia. There was some mottling and erythema in the antrum consistent with mild gastritis but no ulcers or erosions. Pyloric channel, duodenal bulb, post bulbar area and descending duodenum appeared within normal limits with minimal erythema in the bulb. I obtained biopsies from the duodenum, antrum and esophagus then the endoscope was withdrawn and I proceeded with the colonoscopy. Perianal area did not show any fissures or fistulas. There were no masses felt on digital rectal examination. The Olympus CFQ 160L video colonoscope was then inserted in the rectum in the usual fashion and advanced to the cecum. I intubated the ileocecal valve and examined the terminal ileum. Terminal ileum and colon appeared healthy with no edema, erythema, friability, ulceration, exudation or spontaneous bleeding. No polyps or tumors were seen or any obvious diverticular disease or other pathology. I obtained biopsies from the terminal ileum and randomly from the colon then I retroflexed the endoscope in the rectum before the endoscope was withdrawn. The patient tolerated the procedure well. Plan: The patient was reassured. Will await pathology results. I will see him in follow-up in the office and make further recommendations based on his course and biopsy results. I will keep you updated on his progress.
[2018-03-31 12:07] VITALS: BP 130/76; PULSE 80
== END ==
LOC: ORWHC2ENDO 08:44
DX: K29.60 Other gastritis without bleeding (principal); K22.8 Other specified diseases of esophagus; K44.9 Diaphragmatic hernia without obstruction or gangrene; K52.831 Collagenous colitis; F17.200 Nicotine dependence, unspecified, uncomplicated; Z79.899 Other long term (current) drug therapy; Z88.2 Allergy status to sulfonamides
CPT/HCPCS: 88305; 88313; 45380; 43239; J2001; J2704

== ENCOUNTER 2018-11-23 13:09 | Emergency (ER) | payer BC ==
[2018-11-23 13:14] VITALS: BP 148/93; RESP 20; TEMP 98
--- NOTE | 2018-11-23 14:29 | ED ---
Skin/Abscess/FB HPI - General Chief complaint: Skin/Abscess/Foreign Body Stated complaint: Infection Time Seen by Provider: 11/23/18 14:10 Source: patient, RN notes reviewed Mode of arrival: ambulatory Limitations: no limitations - History of Present Illness Initial comments: 42-year-old male present emergency from chief complaint abscess to his suprapubic region. Patient states started with an ingrown hair. Patient states that he's had slight drainage but the pressure is increasing. Patient states she's had prior infections like this in the past. He does have known MRSA an ALLERGY to sulfa products. Patient reports no fever no chills no difficulty urinating. - Related Data Home Medications Medication Instructions Recorded Confirmed Citalopram Hydrobromide [CeleXA] 20 mg PO DAILY 06/26/15 03/30/18 cloNIDine HCL [Catapres] 0.1 mg PO HS 02/23/18 03/31/18 Buprenorphine HCl/Naloxone HCl 1 each SL QAM 03/30/18 03/30/18 [Suboxone 2 mg-0.5 mg Sl Film] Previous Rx's Medication Instructions Recorded Clindamycin HCl 300 mg PO Q6HR #40 cap 11/23/18 Ibuprofen [Motrin] 600 mg PO Q8HR PRN #30 tab 11/23/18 Allergies Allergy/AdvReac Type Severity Reaction Status Date / Time Sulfa (Sulfonamide Allergy Rash/Hives/ Verified 11/23/18 13:13 Antibiotics) SOB Review of Systems ROS Statement: Those systems with pertinent positive or pertinent negative responses have been documented in the HPI. ROS Other: All systems not noted in ROS Statement are negative. Past Medical History Past Medical History: No Reported History Additional Past Medical History / Comment(s): 2015 Left hand injury with infection/sepsis/cellulitis, hx groin- cellulitis, "frozen" L shoulder, colitis , diarrhea, History of Any Multi-Drug Resistant Organisms: MRSA Date of last positivie culture/infection: 05/29/17 MDRO Source:: GROIN Past Surgical History: Appendectomy Past Anesthesia/Blood Transfusion Reactions: Motion Sickness Past Psychological History: Anxiety, Depression Smoking Status: Current every day smoker Past Alcohol Use History: None Reported Past Drug Use History: Prescription Drug Abuse - Past Family History Father Family Medical History: Hypertension, Myocardial Infarction ([place]) Additional Family Medical History / Comment(s): Father is 69yrs old. He had a [place] at the age of 58yrs. Mother Family Medical History: No Reported History Additional Family Medical History / Comment(s): Mother is 68yrs old. General Exam Limitations: no limitations General appearance: alert, in no apparent distress Head exam: Present: atraumatic, normocephalic, normal inspection Respiratory exam: Present: normal lung sounds bilaterally. Absent: respiratory distress, wheezes, rales, rhonchi, stridor Cardiovascular Exam: Present: regular rate, normal rhythm, normal heart sounds. Absent: systolic murmur, diastolic murmur, rubs, gallop, clicks GI/Abdominal exam: Present: soft, normal bowel sounds. Absent: distended, tenderness, guarding, rebound, rigid Skin exam: Present: warm, dry, intact, normal color, other (Suprapubic region there is a swelling approximately 3cm surrounding erythema noted, mild tenderness with palpation). Absent: rash Course Vital Signs 11/23/18 11/23/18 13:11 14:36 Temperature 98 F Pulse Rate 121 H 95 Respiratory 20 Rate Blood Pressure 148/93 O2 Sat by Pulse 98 99 Oximetry Procedures - Incision & Drainage Consent Obtained: verbal consent Indication: Abscess Site: other (Suprapubic) Size (cm): 3 Anesthetic Used: lidocaine 1%, without epi Amount (mLs): 5 I&D Cleaning Method: Betadine Sterile Field Used?: Yes Scalpel Used: #11 I&D Drainage Obtained: Pus, Blood Culture Obtained?: No Patient Tolerated Procedure: well, no complications Medical Decision Making - Medical Decision Making 42-year-old male presented for supra pubic abscess. I&D was performed mild small amount of drainage. Patient was placed on clindamycin as he has an ALLERGY to sulfa any history of MRSA. Wound care return parameters were discussed. Disposition Clinical Impression: Suprapubic abscess Disposition: HOME SELF-CARE Condition: Stable Instructions: Abscess (ED) Additional Instructions: Please return to the Emergency Department if symptoms worsen or any other concerns. Prescriptions: Clindamycin HCl 300 mg PO Q6HR #40 cap Ibuprofen [Motrin] 600 mg PO Q8HR PRN #30 tab PRN Reason: Pain Is patient prescribed a controlled substance at d/c from ED?: No Referrals: Satya Sethi DO [Primary Care Provider] - 1-2 days Time of Disposition: 14:29
[2018-11-23 14:37] VITALS: PULSE 95
== END 2018-11-23 14:37 | disposition home or self-care (01) ==
LOC: EC 13:09
DX: L02.211 Cutaneous abscess of abdominal wall (principal); F17.200 Nicotine dependence, unspecified, uncomplicated; F41.9 Anxiety disorder, unspecified; F32.9 Major depressive disorder, single episode, unspecified; Z79.899 Other long term (current) drug therapy; Z88.2 Allergy status to sulfonamides
CPT/HCPCS: 10060; 99283

== ENCOUNTER 2019-01-03 10:23 | Emergency (ER) | payer BC ==
[2019-01-03 10:29] VITALS: BP 151/87; PULSE 110; RESP 16; TEMP 98.3
--- NOTE | 2019-01-03 11:18 | ED ---
General Adult HPI - General Chief complaint: Skin/Abscess/Foreign Body Stated complaint: Infection Time Seen by Provider: 01/03/19 10:31 Source: patient Mode of arrival: ambulatory Limitations: no limitations - History of Present Illness Initial comments: Dictation was produced using [employer] dictation software. please excuse any grammatical, word or spelling errors. Chief Complaint: Patient is a 43-year-old male presents with multiple abscesses. History of Present Illness: Patient is a 43-year-old male presents with multiple abscesses. Patient states he was given antibiotics however he feels like his symptoms are improving. Patient states he's had multiple abscesses in the past. Patient is given clindamycin. He is on day 3 feels like his symptoms are improving. Denies any constitutional symptoms. The ROS documented in this emergency department record has been reviewed and confirmed by me. Those systems with pertinent positive or negative responses have been documented in the HPI. All other systems are other negative and/or noncontributory. PHYSICAL EXAM: General Impression: Alert and oriented x3, not in acute distress HEENT: Normocephalic atraumatic, extra-ocular movements intact, pupils equal and reactive to light bilaterally, mucous membranes moist. Cardiovascular: Heart regular rate and rhythm, S1&S2 audible, no murmurs, rubs or gallops Chest: Lungs clear to auscultation bilaterally, no rhonchi, no wheeze, no rales Abdomen: Bowel sounds present, abdomen soft, non-tender, non-distended, no organomegaly Musculoskeletal: Pulses present and equal in all extremities, no peripheral edema Motor: Power 5/5 bilaterally, no focal deficits noted Neurological: CN II-XII grossly intact, no focal motor or sensory deficits noted Skin: 6 abscesses. One with induration to the left upper quadrant of the abdomen, 3 on the left anterior knee with induration and 2 on the right anterior knee. Psych: Normal affect and mood ED course: Patient is a 43-year-old male presents with abscesses with minimal relief in symptoms. I&D or aspiration has not been performed on these lesions. [id number] bedside ultrasound was performed showing small 3 x 3 mm fluid collections. All abscesses were needle aspirated. Patient has approximately 5 days of clindamycin left. He is told to complete his antibiotics. Patient tolerated the aspiration well. Arrival are within acceptable limits. Patient clear for discharge. Told to follow up with primary care physician upon discharge. - Related Data Home Medications Medication Instructions Recorded Confirmed Citalopram Hydrobromide [CeleXA] 20 mg PO DAILY 06/26/15 01/03/19 Naltrexone HCl [Revia] 50 mg PO DAILY 01/03/19 01/03/19 Previous Rx's Medication Instructions Recorded Clindamycin HCl 300 mg PO Q6HR #40 cap 11/23/18 Ibuprofen [Motrin] 600 mg PO Q8HR PRN #30 tab 11/23/18 Allergies Allergy/AdvReac Type Severity Reaction Status Date / Time Sulfa (Sulfonamide Allergy Rash/Hives/ Verified 01/03/19 10:51 Antibiotics) SOB Review of Systems ROS Statement: Those systems with pertinent positive or pertinent negative responses have been documented in the HPI. ROS Other: All systems not noted in ROS Statement are negative. Past Medical History Past Medical History: No Reported History Additional Past Medical History / Comment(s): 2014 Left hand injury with infection/sepsis/cellulitis, hx groin- cellulitis, "frozen" L shoulder, colitis , diarrhea, History of Any Multi-Drug Resistant Organisms: MRSA Date of last positivie culture/infection: 05/29/17 MDRO Source:: GROIN Past Surgical History: Appendectomy Past Anesthesia/Blood Transfusion Reactions: Motion Sickness Past Psychological History: Anxiety, Depression Smoking Status: Current every day smoker Past Alcohol Use History: None Reported Past Drug Use History: Prescription Drug Abuse - Past Family History Father Family Medical History: Hypertension, Myocardial Infarction ([place]) Additional Family Medical History / Comment(s): Father is 69yrs old. He had a [place] at the age of 58yrs. Mother Family Medical History: No Reported History Additional Family Medical History / Comment(s): Mother is 68yrs old. General Exam Limitations: no limitations Course Vital Signs 01/03/19 10:26 Temperature 98.3 F Pulse Rate 110 H Respiratory 16 Rate Blood Pressure 151/87 O2 Sat by Pulse 98 Oximetry Disposition Clinical Impression: Abscess Disposition: HOME SELF-CARE Condition: Good Instructions (If sedation given, give patient instructions): Warm Compress or Soak (ED) Is patient prescribed a controlled substance at d/c from ED?: No Referrals: Satya Sethi DO [Primary Care Provider] - 1-2 days Time of Disposition: 11:18
--- NOTE | 2019-01-03 11:19 | ED ---
Disposition Clinical Impression: Abscess Disposition: HOME SELF-CARE Condition: Good Instructions (If sedation given, give patient instructions): Warm Compress or Soak (ED) Is patient prescribed a controlled substance at d/c from ED?: No Referrals: Satya Sethi DO [Primary Care Provider] - 1-2 days Procedures - Incision & Drainage Consent Obtained: verbal consent Site: abdomen, lower extremity, other Anesthetic Used: lidocaine 1%, with epi I&D Cleaning Method: Alcohol Wipe Sterile Field Used?: Yes Needle Aspiration Performed?: Yes I&D Drainage Obtained: Pus, Serous Culture Obtained?: No Patient Tolerated Procedure: well
== END 2019-01-03 11:27 | disposition home or self-care (01) ==
LOC: EC 10:23
DX: L02.211 Cutaneous abscess of abdominal wall (principal); L02.416 Cutaneous abscess of left lower limb; L02.415 Cutaneous abscess of right lower limb; F41.9 Anxiety disorder, unspecified; F32.9 Major depressive disorder, single episode, unspecified; F17.200 Nicotine dependence, unspecified, uncomplicated; Z79.899 Other long term (current) drug therapy; Z88.2 Allergy status to sulfonamides
CPT/HCPCS: 10061; 99283

== ENCOUNTER → 2020-11-08 | Outpatient (CLI) | payer BC ==
[2020-11-08 20:46] LABS: Gliadin AB IgA, Deaminated NEGATIVE (NEGATIVE); Gliadin AB IgA, Unit 0.5 U/mL; Gliadin AB IgG, Deaminated NEGATIVE (NEGATIVE)
== END | disposition home or self-care (01) ==
LOC: LABWHC1 11:13
PROVIDERS: ATTEND Nurse Practitioner
DX: K52.9 Noninfective gastroenteritis and colitis, unspecified (principal)
CPT/HCPCS: 36415; 83516; 83630; 85652; 86140; 87045; 87046; 87328; 87329

== ENCOUNTER 2020-11-27 07:55 | Day surgery (SDC) | payer BC ==
[2020-11-21 11:22] VITALS: BMI 24.6
[2020-11-27 08:12] VITALS: TEMP 97.8
[2020-11-27] MEDS ORDERED: LIDOCAINE 1% (10MG/ML) FOR IV START INTRADERMA ONE (08:12)
[2020-11-27] MEDS ORDERED: LACTATED RINGERS 1,000 ML IV ONE (08:12)
[2020-11-27] MEDS ORDERED: PROPOFOL 10 MG/ML 20 ML VIAL IV ONE (08:36)
--- NOTE | 2020-11-27 08:59 | P.PCN ---
Date of Procedure: 11/27/20 Description of Procedure: BRIEF HISTORY: Patient is a 45-year-old male presenting for outpatient colonoscopy for evaluation of gastroenteritis, altered bowel function, noninfectious colitis. Patient has a history of frequent loose bowel movements. Previously colonoscopy was significant for collagenous colitis. Symptoms improved with antidiarrheal use. PROCEDURE PERFORMED: Colonoscopy with biopsy and polypectomy. PREOPERATIVE DIAGNOSIS: Gastroenteritis, altered bowel function, noninfectious colitis, last colonoscopy in 2018. ESTIMATED BLOOD LOSS: Minimal. IV sedation per Anesthesia. PROCEDURE: After informed consent was obtained, the patient, was brought into the endoscopy unit. IV sedation was administered by Anesthesia under continuous monitoring. Digital rectal examination was normal. Initially the Olympus CF-190 flexible video colonoscope was then inserted in the rectum, gradually advanced into the cecum without any difficulty. Careful examination was performed as the scope was gradually being withdrawn. Ileocecal valve and the appendiceal orifice were visualized and appeared normal. Prep was excellent. Mucosa of the cecum, ascending colon, transverse colon, descending colon, sigmoid colon, and rectum appeared normal, with random biopsies taken of the right colon and left colon and a normal-appearing terminal ileum due to altered bowel function to diarrhea. A diminutive 2 mm polyp was removed from the rectum with cold forcep polypectomy. Retroflexion was performed in the rectum and no lesions were seen, low-grade internal hemorrhoids. The patient tolerated the procedure well. IMPRESSION: Normal-appearing colon from rectum to cecum and normal appearing terminal ileum, with random biopsies taken of the terminal ileum, right colon and left colon. Diminutive rectal polyp removed with cold forcep polypectomy. RECOMMENDATIONS: Findings of this examination were discussed with the patient . Okay to resume diet. Okay to resume medications. Continue antidiarrheal as needed. Follow-up in the GI clinic as scheduled for results of biopsies.
[2020-11-27 09:01] VITALS: RESP 16
[2020-11-27 09:13] VITALS: BP 138/94; PULSE 91
== END 2020-11-27 09:29 ==
LOC: ORWHC2ENDO 07:55
PROVIDERS: ATTEND Internal Medicine
DX: K52.831 Collagenous colitis (principal); K62.1 Rectal polyp; K64.8 Other hemorrhoids; Z72.0 Tobacco use; G47.33 Obstructive sleep apnea (adult) (pediatric); Z79.1 Long term (current) use of non-steroidal anti-inflammatories (NSAID); Z79.899 Other long term (current) drug therapy; Z88.2 Allergy status to sulfonamides
CPT/HCPCS: 88305; 45380; J2704

== ENCOUNTER 2021-10-07 08:13 | Emergency (ER) | payer BC ==
[2021-10-07 08:18] VITALS: RESP 18; TEMP 99
[2021-10-07] MEDS ORDERED: ACETAMINOPHEN TAB 500 MG TAB PO STA (09:12)
--- NOTE | 2021-10-07 09:12 | ED ---
URI HPI - General Chief Complaint: Upper Respiratory Infection Stated Complaint: Body aches Time Seen by Provider: 10/07/21 08:23 Source: patient, RN notes reviewed Mode of arrival: ambulatory Limitations: no limitations - History of Present Illness Initial Comments: 45-year-old male presents emergency dept chief complaint of Congestion, body aches, cough. Patient states symptoms started last couple days states is mainly sinus congestion, bodyaches no reported fever currently but states he did have 101 temp at home. No sick contacts no shortness breath chest pain no nausea vomiting diarrhea constipation. - Related Data Home Medications Medication Instructions Recorded Confirmed Citalopram Hydrobromide [CeleXA] 20 mg PO DAILY 06/26/15 11/21/20 Acetaminophen Tab [Tylenol] 650 mg PO DIRECTED PRN 11/21/20 11/21/20 Augmentin (Unknown Dose) 1 tab PO BID 11/21/20 Ibuprofen [Motrin Ib] 400 mg PO DIRECTED PRN 11/21/20 11/21/20 Loperamide [Imodium] 2 mg PO DIRECTED PRN MDD 8 doses 11/21/20 11/21/20 Melatonin 10 mg PO HS PRN 11/21/20 11/21/20 Previous Rx's Medication Instructions Recorded Amoxicillin/Potassium Clav 1 tab PO Q12HR #20 tab 10/07/21 [Augmentin 875-125 Tablet] Allergies Allergy/AdvReac Type Severity Reaction Status Date / Time Sulfa (Sulfonamide Allergy Rash/Hives/ Verified 10/07/21 08:18 Antibiotics) SOB Review of Systems ROS Statement: Those systems with pertinent positive or pertinent negative responses have been documented in the HPI. ROS Other: All systems not noted in ROS Statement are negative. Past Medical History Past Medical History: No Reported History Additional Past Medical History / Comment(s): 2015 Left hand injury with infection/sepsis/cellulitis, hx groin- cellulitis, "frozen" L shoulder, colitis, diarrhea, History of Any Multi-Drug Resistant Organisms: MRSA Date of last positivie culture/infection: 05/29/17 MDRO Source:: GROIN Past Surgical History: Appendectomy Past Anesthesia/Blood Transfusion Reactions: Motion Sickness Past Psychological History: Anxiety, Depression Smoking Status: Current every day smoker Past Alcohol Use History: Occasional Additional Past Alcohol Use History / Comment(s): has smoked for 15-20 yrs, 1 ppd smoker. Past Drug Use History: Prescription Drug Abuse - Past Family History Father Family Medical History: Hypertension, Myocardial Infarction ([place]) Additional Family Medical History / Comment(s): Father is 69yrs old. He had a [place] at the age of 58yrs. Mother Family Medical History: No Reported History Additional Family Medical History / Comment(s): . General Exam Limitations: no limitations General appearance: alert, in no apparent distress Head exam: Present: atraumatic, normocephalic, normal inspection Eye exam: Present: normal appearance, PERRL, EOMI. Absent: scleral icterus, conjunctival injection, periorbital swelling ENT exam: Present: normal exam, mucous membranes moist Neck exam: Present: normal inspection, full ROM. Absent: tenderness, meningismus, lymphadenopathy Respiratory exam: Present: normal lung sounds bilaterally. Absent: respiratory distress, wheezes, rales, rhonchi, stridor Cardiovascular Exam: Present: normal rhythm, tachycardia, normal heart sounds. Absent: systolic murmur, diastolic murmur, rubs, gallop, clicks GI/Abdominal exam: Present: soft, normal bowel sounds. Absent: distended, tenderness, guarding, rebound, rigid Course Vital Signs 10/07/21 08:14 Temperature 99.0 F Pulse Rate 118 H Respiratory 18 Rate Blood Pressure 146/97 O2 Sat by Pulse 98 Oximetry Medical Decision Making - Medical Decision Making Patient is negative for COVID-19. Patient upper respiratory infection. Patient discharged in stable condition. - Lab Data Lab Results 10/07/21 Range/Units 10:03 Coronavirus (PCR) Not Detected (Not Detectd) Disposition Clinical Impression: Sinusitis Disposition: HOME SELF-CARE Condition: Stable Instructions (If sedation given, give patient instructions): Upper Respiratory Infection (ED) Additional Instructions: Please return to the Emergency Department if symptoms worsen or any other concerns. Prescriptions: Amoxicillin/Potassium Clav [Augmentin 875-125 Tablet] 1 tab PO Q12HR #20 tab Is patient prescribed a controlled substance at d/c from ED?: No Referrals: Satya Sethi DO [Primary Care Provider] - 1-2 days Time of Disposition: 10:32
[2021-10-07 11:08] VITALS: BP 129/89; PULSE 90
== END 2021-10-07 11:08 | disposition home or self-care (01) ==
LOC: EC 08:13
DX: J01.90 Acute sinusitis, unspecified (principal); F41.9 Anxiety disorder, unspecified; F32.9 Major depressive disorder, single episode, unspecified; F17.200 Nicotine dependence, unspecified, uncomplicated; Z20.822 Contact with and (suspected) exposure to COVID-19; Z88.2 Allergy status to sulfonamides; Z90.49 Acquired absence of other specified parts of digestive tract
CPT/HCPCS: 87635; 99283

== ENCOUNTER 2025-03-04 09:30 | Day surgery (SDC) | payer BC ==
[2025-03-02 12:10] VITALS: BMI 23.1
[~2025-03-04 09:30] MED LIST changes: -GLYCOPYRROLATE 0.2 MG/ML 2 ML VIAL ONE; -LACTATED RINGERS 1,000 ML IV SCH; +LIDOCAINE 1% (10MG/ML) FOR IV START INTRADERMA PRN; -LIDOCAINE 1% 20 ML VIAL (10MG/ML) FOR IV START INTRADERMA PRN; -LIDOCAINE 1% INJ 10MG/ML (20 ML MDV) ONE; -PROPOFOL 10 MG/ML 20 ML VIAL IV ONE
[2025-03-04 10:21] VITALS: TEMP 97.5
[2025-03-04] MEDS: IV FLUID CONTINUATION 1,000 ML IV ONE (10:24)
[2025-03-04] MEDS: LACTATED RINGERS 1,000 ML IV SCH (10:25)
[2025-03-04] MEDS ORDERED: PROPOFOL 10 MG/ML 20 ML VIAL IV ONE (11:14)
--- NOTE | 2025-03-04 11:26 | P.PCN ---
Date of Procedure: 03/04/25 Procedure(s) Performed: BRIEF HISTORY: Patient is a 49-year-old pleasant white male scheduled for an elective colonoscopy as a part of screening for colon cancer. His grandpa was diagnosed with colon cancer at age 75. He was diagnosed with collagenous colitis 5 years ago. PROCEDURE PERFORMED: Colonoscopy. PREOPERATIVE DIAGNOSIS: Screening for colon cancer. IV sedation per Anesthesia. PROCEDURE: After informed consent was obtained, the patient, was brought into the endoscopy unit. IV sedation was administered by Anesthesia under continuous monitoring. Digital rectal examination was normal. Initially the Olympus CF-160 flexible video colonoscope was then inserted in the rectum, gradually advanced into the cecum without any difficulty. Careful examination was performed as the scope was gradually being withdrawn. Ileocecal valve and the appendiceal orifice were visualized and appeared normal. Prep was excellent. Mucosa of the cecum, ascending colon, transverse colon, descending colon, sigmoid colon, and rectum appeared normal. Retroflexion was performed in the rectum and no lesions were seen. The patient tolerated the procedure well. IMPRESSION: Normal-appearing colon from rectum to cecum with no evidence of colorectal neoplasia. RECOMMENDATIONS: Findings of this examination were discussed with the patient as well as his family.. He was advised to have repeat screening colonoscopy in 10 years. Continue with Imodium as needed.
[2025-03-04 11:33] VITALS: PULSE 75
[2025-03-04 11:57] VITALS: BP 131/76; RESP 16
== END 2025-03-04 12:12 | disposition home or self-care (01) ==
LOC: ORWHC2ENDO 09:30
PROVIDERS: ATTEND Internal Medicine Gastroenterology
DX: Z12.11 Encounter for screening for malignant neoplasm of colon (principal); Z80.0 Family history of malignant neoplasm of digestive organs
CPT/HCPCS: 45378; J2704